=== PATIENT | male | born 1985 | race Two or more races ===

== ENCOUNTER 2023-09-17 08:59 | Outpatient (REF) | payer MEDICAID, OTHER, SELFPAY ==
[2023-09-17 14:43] LABS: MANUAL DIFF FLAG NO
[2023-09-17 14:54] LABS: Basophils Absolute Auto 0.1 X10*3/uL (0.0-0.2); Basophils Percent Auto 0.7 % (0-2); Eosinophils Absolute Auto 0.1 X10*3/uL (0.0-0.4); Eosinophils Percent Auto 1.5 % (0-4); Hematocrit 43.7 % (42.0-52.0); Hemoglobin 14.3 g/dl (14.0-18.0); Imm Gran Abs Auto 0.03 X10*3/uL (0.00-0.03); Imm Gran Pct Auto 0.4 % (0.0-0.4); Lymphocytes Absolute Auto 1.9 X10*3/uL (1.2-4.9); Lymphocytes Percent Auto 28.7 % (20-40); Mean Corpuscular HGB Conc 32.7 g/dl (31.0-36.0); Mean Corpuscular Volume 88.6 fL (80.0-98.0); Mean Platelet Volume 12.1 fL (9.4-12.4); Monocytes Absolute Auto 0.6 X10*3/uL (0.1-1.2); Monocytes Percent Auto 9.4 % (2-11); Neutrophils Percent Auto 59.3 % (45-73); Platelet Count 157 X10*3/uL (160-400); Red Blood Count 4.93 X10*6/uL (4.60-5.80); Red Cell Distribution Width 13.6 % (11.0-16.0); White Blood Count 6.7 X10*3/uL (4.8-10.8)
[2023-09-17 15:00] LABS: Estimated Average Glucose 105 mg/dL; Hemoglobin A1c % 5.3 % (<6.0)
[2023-09-17 15:12] LABS: Rheumatoid Factor < 13.0 IU/mL (<15.0)
[2023-09-17 15:26] LABS: Alanine Aminotransferase 41 U/L (0-40); Albumin Level 4.9 g/dL (3.5-5.0); Alkaline Phosphatase 68 U/L (39-117); Anion Gap 12 (12-20); Aspartate Amino Transferase 30 U/L (5-37); Bilirubin Direct 0.3 mg/dL (0.0-0.5); Bilirubin Total 0.7 mg/dL (0.0-1.0); Blood Urea Nitrogen 15 mg/dL (9-16); Calcium 9.7 mg/dL (8.4-10.2); Carbon Dioxide 26 mmol/L (22-29); Chloride 104 mmol/L (96-108); Cholesterol 186 mg/dL (<200); Estimated Glomerular Filt Rate > 60; Glucose Fasting 90 mg/dL (60-99); HDL Cholesterol 42 mg/dL (>40); LDL Cholesterol Calculated 121 mg/dL (<100); Potassium 4.1 mmol/L (3.3-5.1); Sodium 138 mmol/L (135-145); TSH reflex Free T4 2.26 uIU/mL (0.32-4.0); Triglycerides 115 mg/dL (<150); Uric Acid 6.5 mg/dL (3.4-7.0); Vitamin D 25-OH Total 36.1 ng/mL (>30)
[2023-09-17 16:06] LABS: Erythrocyte Sedimentation Rate 4 MM/HR (0-15)
[2023-09-18 08:12] LABS: HBc Num1 0.09 S/CO (0.00-0.79); HBsAGNum1 0.32 S/CO (0.00-0.99); Hepatitis A Antibody IgM 0.16 Index (0-0.79); Hepatitis B Core Antibody Nonreactive (Nonreactive); Hepatitis B Surface Antigen Negative (Negative); ~HepC Num1 0.14 S/CO (0.00-0.79); ~Hepatitis A Antibody IgM Nonreactive (Nonreactive); ~Hepatitis B Surface Antibody REACTIVE (Nonreactive); ~Hepatitis C Antibody Nonreactive (Nonreactive)
== END 2023-09-17 09:00 | disposition home or self-care (01) ==
LOC: HO.CHCLDS 08:59
PROVIDERS: Visit Provider Pediatrics
DX: M25.562 Pain in left knee (principal); G89.29 Other chronic pain; N46.9 Male infertility, unspecified; E66.3 Overweight
CPT/HCPCS: 36415; 80048; 80061; 80076; 82306; 83036; 84443; 84550; 85025; 85652; 86431; 86704; 86706; 86709; 86803; 87340

== ENCOUNTER 2024-05-20 08:40 | Outpatient (REF) | payer MEDICAID, OTHER, SELFPAY ==
--- NOTE | ~2024-05-20 | US_ITS ---
EXAMINATION: US ABDOMEN COMPLETE CLINICAL INFORMATION: Severe right upper quadrant pain with tenderness. COMPARISON: None available. TECHNIQUE: Real-time imaging of the abdominal viscera. FINDINGS: PANCREAS: Normal. ABDOMINAL AORTA: The proximal, mid, and distal segments are normal in caliber. INFERIOR VENA CAVA: Visualized portions are normal. LIVER: The liver is normal in size. The liver contour is normal. Parenchymal echogenicity is normal. Small approximately 0.5 cm calcification in the right hepatic lobe. There is no intrahepatic biliary duct dilatation seen. GALLBLADDER: Multiple stones, some impacted in the neck with admixed echogenic bile, diffuse wall thickening measuring up to 0.9 cm and pericholecystic fat stranding. Positive Lincoln sign. Suspect a few foci of adenomyomatosis. COMMON BILE DUCT: Normal in caliber measuring 0.5 cm in diameter. RIGHT KIDNEY: Normal. No hydronephrosis. No renal calculi or focal parenchymal lesions. The kidney measures 11.6 cm in maximum dimension. LEFT KIDNEY: Simple appearing cysts measuring up to 2.6 cm, for which no imaging follow-up is routinely recommended No hydronephrosis or renal calculi. The kidney measures 12 cm in maximum dimension. SPLEEN: Calcified granulomas are seen. The spleen measures 11 cm in maximum dimension. FREE FLUID: None. US/US abdomen complete IMPRESSION: Findings are most consistent with acute cholecystitis in the appropriate clinical setting. The report will be called to the ordering clinician by a [place] Radiology Physician Data Scientist. Electronically signed by: Estela William MD 05/20/2024 10:30 AM EDT
== END 2024-05-20 08:41 | disposition home or self-care (01) ==
LOC: HO.US 08:40
PROVIDERS: PCP Family Medicine; Visit Provider Family Medicine
DX: R10.11 Right upper quadrant pain (principal)
CPT/HCPCS: 76700

== ENCOUNTER 2024-05-20 15:56 | Inpatient (IN) | payer MEDICAID, OTHER, SELFPAY ==
[2024-05-20 16:09] VITALS: BP 127/70; PULSE 68; RESP 18; TEMP 37.2; O2SAT 99; BMI 34.9
--- NOTE | 2024-05-20 16:09 | ED_ITS ---
HPI - Abdominal Pain General Chief Complaint: Abdominal Pain Stated Complaint: Abnormal ultrasound - sent by Dr Chen Seen by Provider: 05/20/24 16:47 Source: patient Mode of arrival: ambulatory Limitations: no limitations History of Present Illness HPI narrative: Patient is a 39-year-old male presents to the emergency department for evaluation for the past 6 days he has been experiencing intermittent right upper quadrant abdominal pain. An outpatient ultrasound earlier this morning was called by his PCP to present to the ER with concerns for acute cholecystitis. He denies associated fevers, chills, chest pain, shortness of breath, nausea, vomiting, diarrhea. Denies any history of gallstones in the past. Denies any drug or alcohol usage. Outpatient ultrasound obtained earlier this morning revealing acute cholecystitis with multiple stones some impacted in the neck and diffuse wall thickening measuring up to 0.9 cm with pericholecystic fat stranding positive Lincoln sign, CBD 0.5 cm Related Data Home Medications ?Medication ?Instructions ?Recorded ?Confirmed No Known Home Meds 05/20/24 05/20/24 Allergies Allergy/AdvReac Type Severity Reaction Status Date / Time No Known Allergies Allergy Verified 05/20/24 16:11 Review of Systems Review of Systems Yes all other systems are reviewed and are negative PMFSH Past Medical History Attestation statement: The following information was validated with the patient. Source: old records reviewed Social History Social History Smoked in Last 30 Days: No Use of substances other than those prescribed or required for medical reasons: No Advance Directives: No Advance Directives Information Provided: No Do you have a plan to hurt others: No Plan Physical Exam ED Vital Signs: Vital Signs - 24 hr 05/20/24 16:09 05/20/24 18:33 Temperature 98.9 F 98.3 F Pulse Rate 68 74 Respiratory Rate 18 16 Blood Pressure 127/70 139/82 Pulse Oximetry 99 98 Oxygen Delivery Method Room Air Room Air BMI result Body Mass Index 34.9 Appearance: Alert.?Oriented to person, place and time. No acute distress.?Normal affect. Neck: Normal inspection.? Neck supple.?? CVS: Heart sounds normal. Normal heart rate and rhythm.? Pulses normal.?? Respiratory: No respiratory distress.? Lung sounds clear to auscultation bilaterally?? Abdomen: Soft with right upper quadrant epigastric tenderness upon palpation. Positive Lincoln sign. No rigidity. No guarding. Normoactive bowel sounds. No pulsatile mass.?? Skin: Skin warm and dry.? Normal skin color.? Extremities: No lower extremity edema.? No calf ttp? Neuro: Moves all extremities spontaneously. Sensation intact bilaterally. Ambulates with normal steady gait. Course Course Course Narrative: This is a Rapid Medical Examination (RME) performed by Katelynn Pandey PA-C in triage. Full HPI, ROS, assessment and treatment plan per primary provider in the Main ED. 39 yo male here for eval of sharp RUQ pain x5 days. had abdominal US at 0900 this morning, was called by PCP for findings consistent with acute cholecystitis. no prev abd surgeries. denies N/V/D, fever, chills. + RUQ ttp. positive murphys sign. Plan: labs, US read in system Medical Decision Making Medical Decision Making [facility] Narrative: Patient is a 39-year-old male with no reported past medical history presenting to emergency department for evaluation of right upper quadrant abdominal pain as per HPI. Intermittent in nature. Currently 09/16. Outpatient ultrasound consistent with acute cholecystitis. CBC is without leukocytosis, mild normocytic anemia that does not meet transfusion criteria, no thrombocytopenia. No electrolyte derangement. No DALE. LFTs and lipase within normal range. Patient received normal saline IV fluid, Zosyn IV, consulting general surgery, Dr. Tomlinson. Differential Diagnosis Differential Diagnoses: The differential diagnosis associated with the presentation includes (Acute cholecystitis, cholelithiasis, CBD stone) Admission/Observation Consideration of admission/observation: Escalation of care including admission/observation considered (See narrative above) Consult Healthcare Provider Management of the patient was discussed with: Military Cook (General surgery) Patient admitted to general surgery service with Dr. Tomlinson, pending cholecystectomy tomorrow, this plan of care was discussed with patient with use Egyptian Angolan calender wind up helper all questions were answered. Lab Data [facility] Lab Attestation statement: I reviewed the patient's lab results. (See narrative above) 05/20/24 16:27 05/20/24 16:27 Labs: Lab Results 05/20/24 05/20/24 Range/Units 16:27 17:15 WBC 8.7 (4.8-10.8) X10*3/uL RBC 4.33 L (4.60-5.80) X10*6/uL Hgb 12.8 L (14.0-18.0) g/dl Hct 38.2 L (42.0-52.0) % MCV 88.2 (80.0-98.0) fL MCH 29.6 (27.0-33.0) pg MCHC 33.5 (31.0-36.0) g/dl RDW 12.4 (11.0-16.0) % Plt Count 255 D (160-400) X10*3/uL MPV 10.8 (9.4-12.4) fL Immature Gran % (Auto) 0.3 (0.0-0.4) % Neut % (Auto) 68.5 (45-73) % Lymph % (Auto) 20.3 (20-40) % [place] % (Auto) 8.7 (2-11) % Eos % (Auto) 1.7 (0-4) % Baso % (Auto) 0.5 (0-2) % Lymph # (Auto) 1.8 (1.2-4.9) X10*3/uL [place] # (Auto) 0.8 (0.1-1.2) X10*3/uL Eos # (Auto) 0.2 (0.0-0.4) X10*3/uL Baso # (Auto) 0.0 (0.0-0.2) X10*3/uL Abs Immat Gran (auto) 0.03 (0.00-0.03) X10*3/uL Absolute Neuts (auto) 5.9 (2.0-8.3) x10*3/uL Absolute Nucleated RBC 0.000 (0.0-0.012) X10*3/uL Nucleated RBC % (auto) 0.0 (0.0-0.2) /100WBC Sodium 139 (135-145) mmol/L Potassium 4.1 (3.3-5.1) mmol/L Chloride 103 (96-108) mmol/L Carbon Dioxide 26 (22-29) mmol/L Anion Gap 14 (12-20) BUN 19 H (9-16) mg/dL Creatinine 1.00 (0.5-1.4) mg/dL Estim Creat Clear Calc 107.5 Estimated GFR > 60 Random Glucose 86 (60-115) mg/dL Lactic Acid 0.9 (0.5-2.0) mmol/L Calcium 9.5 (8.4-10.2) mg/dL Total Bilirubin 0.6 (0.0-1.0) mg/dL Direct Bilirubin 0.1 (0.0-0.5) mg/dL AST 17 (5-37) U/L ALT 19 (0-40) U/L Alkaline Phosphatase 62 (39-117) U/L Total Protein 7.3 (6.5-8.0) g/dL Albumin 4.2 (3.5-5.0) g/dL Lipase 35 (8-78) U/L External Record Review External record reviewed: Prior outpatient radiology 05/20/2024 US/US abdomen complete IMPRESSION: Findings are most consistent with acute cholecystitis in the appropriate clinical setting. Medications Administered Discontinued Medications Generic Name Dose Route Start Last Admin Trade Name Freq PRN Reason Stop Dose Admin Acetaminophen 650 mg 05/20/24 19:48 05/20/24 19:52 Acetaminophen 325 Mg Tablet PO 05/20/24 19:49 650 mg ONCE ONE Administration Piperacillin Sod/Tazobactam 100 mls @ 200 mls/hr 05/20/24 17:01 05/20/24 18:27 Sod 4.5 gm/ Sodium Chloride IV 05/20/24 17:30 Infused ONCE ONE Infusion Sodium Chloride 1,000 mls @ 999 mls/hr 05/20/24 17:15 05/20/24 19:49 Ns IV 05/20/24 18:15 Infused .Q1H1M [facility] Infusion Discharge Plan Discharge Clinical Impression: Acute cholecystitis Patient Disposition: Admitted As Inpatient Prescriptions: No Action No Known Home Meds Print Language: Angolan
[2024-05-20 16:35] LABS: MANUAL DIFF FLAG NO
[2024-05-20 16:40] LABS: Basophils Percent Auto 0.5 % (0-2); Eosinophils Absolute Auto 0.2 X10*3/uL (0.0-0.4); Eosinophils Percent Auto 1.7 % (0-4); Hematocrit 38.2 % (42.0-52.0); Hemoglobin 12.8 g/dl (14.0-18.0); Imm Gran Abs Auto 0.03 X10*3/uL (0.00-0.03); Imm Gran Pct Auto 0.3 % (0.0-0.4); Lymphocytes Absolute Auto 1.8 X10*3/uL (1.2-4.9); Lymphocytes Percent Auto 20.3 % (20-40); Mean Corpuscular HGB Conc 33.5 g/dl (31.0-36.0); Mean Corpuscular Hemoglobin 29.6 pg (27.0-33.0); Mean Corpuscular Volume 88.2 fL (80.0-98.0); Mean Platelet Volume 10.8 fL (9.4-12.4); Monocytes Absolute Auto 0.8 X10*3/uL (0.1-1.2); Monocytes Percent Auto 8.7 % (2-11); Neutrophils Absolute Auto 5.9 x10*3/uL (2.0-8.3); Neutrophils Percent Auto 68.5 % (45-73); Platelet Count 255 X10*3/uL (160-400); Red Blood Count 4.33 X10*6/uL (4.60-5.80); Red Cell Distribution Width 12.4 % (11.0-16.0); White Blood Count 8.7 X10*3/uL (4.8-10.8)
[2024-05-20 16:58] LABS: Alanine Aminotransferase 19 U/L (0-40); Albumin Level 4.2 g/dL (3.5-5.0); Alkaline Phosphatase 62 U/L (39-117); Anion Gap 14 (12-20); Aspartate Amino Transferase 17 U/L (5-37); Bilirubin Direct 0.1 mg/dL (0.0-0.5); Bilirubin Total 0.6 mg/dL (0.0-1.0); Blood Urea Nitrogen 19 mg/dL (9-16); Calcium 9.5 mg/dL (8.4-10.2); Carbon Dioxide 26 mmol/L (22-29); Chloride 103 mmol/L (96-108); Creatinine Clr Calc Pharmacy 107.5; Estimated Glomerular Filt Rate > 60; Glucose Random 86 mg/dL (60-115); Lipase 35 U/L (8-78); Potassium 4.1 mmol/L (3.3-5.1); Sodium 139 mmol/L (135-145); Total Protein 7.3 g/dL (6.5-8.0)
[2024-05-20 17:35] LABS: Lactic Acid 0.9 mmol/L (0.5-2.0)
[2024-05-20] MEDS: 0.9 % Sodium Chloride 1,000 ML 999 ML IV (18:00)
[2024-05-20] MEDS: Piperacillin Sodium/Tazobactam 4.5 GM in 0.9 % Sodium Chloride 100 ML IV (18:00)
[2024-05-20 18:33] VITALS: BP 139/82; PULSE 74; RESP 16; TEMP 36.8; O2SAT 98
--- NOTE | 2024-05-20 18:50 | PHA.MEDREC ---
Addendum entered by Mert Israel RPh 05/20/24 19:05: Med rec was reviewed by KRISTINA. Original Note: Pharmacy Consult ? Medication Reconciliation Pharmacy has completed the medication reconciliation.
[2024-05-20] MEDS: Acetaminophen 325 MG TABLET 650 MG PO (19:52)
--- NOTE | 2024-05-20 19:54 | PC.NURSE ---
Pt aox4, resting with family at the bedside. No apparent distress noted. Pt reports back pain, 2/10. Medicated with Tylenol. Pending admit orders. Pt aware of plan of care.
[2024-05-20 23:26] VITALS: BP 126/67; PULSE 54; RESP 18; O2SAT 98
[2024-05-21] VITALS (10 sets, daily range): BP systolic 106–142; BP diastolic 56–73; PULSE 54–90; RESP 14–20; TEMP 36.6–37.1; O2SAT 91–99; BMI 34.8
--- NOTE | 2024-05-21 01:56 | PC.NURSE ---
Pt reports increasing abdominal pain through all 4 quadrants, 06/16. [place] text sent to Dr. Tomlinson. New order received and placed in the MAR. Pt medicated and tolerated well.
[2024-05-21] MEDS: Morphine Sulfate 4 MG/ML CARTRIDGE 3 MG IVPUSH (02:13)
[2024-05-21] MEDS: 0.9 % Sodium Chloride 1,000 ML 100 ML IVCONT ×2 (05:10→14:31)
[2024-05-21] MEDS: Piperacillin Sodium/Tazobactam 3.375 GM in 0.9 % Sodium Chloride 50 ML IV ×3 (05:32→17:37)
--- NOTE | 2024-05-21 05:56 | PC.NURSE ---
RN assumed care of patient @0545. Denies having any pain/discomfort at this moment. Medicated for pain at main ED with good effect per report. Pt resting comfortably, no apparent distress. Call cortez within reach. Plan of care ongoing.
--- NOTE | 2024-05-21 09:19 | PHA.MEDREC ---
Addendum entered by Zonia Oates RPh 05/21/24 09:52: MED REC REVIEWED BY DAVID Original Note: Pharmacy Consult ? Medication Reconciliation Pharmacy has completed the medication reconciliation. Patient reports no medications or OTC.
--- NOTE | 2024-05-21 09:23 | PC.NURSE ---
patient remains NPO as surgery will be today per Dr. Ramos and this MD will come and see patient at 9 am
--- NOTE | 2024-05-21 10:28 | P.HPGS_ITS ---
History of Present Illness History of Present Illness Date of Service: 05/21/24 Chief complaint: Abdo pain Narrative: Sarah Brown is a 39 year old male very healthy who for the last week has been having right upper quadrant pain. It has gotten worse with some nausea no vomiting and he saw his PCP who asked him to get outpatient ultrasound which showed findings of acute cholecystitis. As a result he was told to come into the emergency room. blood work was relatively normal. Ultrasound revealed thickened gallbladder positive Lincoln sound. Patient diagnosed with acute cholecystitis admitted IV antibiotics NPO. Plan to do laparoscopic cholecystectomy. Review of Systems Review of Systems: Yes all other systems are reviewed and are negative PMFSH Social History Social History Patient Tobacco Use Status: Never used Tobacco Smoked in Last 30 Days: No Use of substances other than those prescribed or required for medical reasons: No Advance Directives: No Advance Directives Information Provided: No Do you have a plan to hurt others: No Plan Nutrition Risks: No Nutritional Risk Meds Allergies Allergy/AdvReac Type Severity Reaction Status Date / Time No Known Allergies Allergy Verified 05/20/24 16:11 Active Medications: Current Medications Acetaminophen (Acetaminophen 325 Mg Tablet) 650 mg PO Q6H PRN PRN Reason: Pain, Mild (Pain Scale 1-3), fever or headache Sodium Chloride (Ns) 1,000 mls @ 100 mls/hr IVCONT .Q10H [facility] Last Admin: 05/21/24 05:10 Dose: 100 mls/hr Piperacillin Sod/Tazobactam (Sod 3.375 gm/ Sodium Chloride) 50 mls @ 100 mls/hr IV Q6H [facility] Last Infusion: 05/21/24 06:06 Dose: Infused Melatonin (Melatonin 3 Mg Tablet) 6 mg PO BEDTIME PRN PRN Reason: Insomnia Morphine Sulfate (Morphine Sulfate 4 Mg/Ml Cartridge) 3 mg IVPUSH Q4H PRN; Protocol PRN Reason: Pain, Severe (Pain Scale 7-10) Last Admin: 05/21/24 02:13 Dose: 3 mg Sodium Chloride (0.9 % Sodium Chloride Flush 3 Ml Syringe) 3 ml IVFLUSH QSHIFT [facility] Last Admin: 05/21/24 09:22 Dose: Not Given Home Medications ?Medication ?Instructions ?Recorded ?Confirmed ?Last Taken ?Type No Known Home Meds 05/20/24 05/20/24 Unknown History Physical Exam Vital Signs: Vital Signs: Last Vital Signs Temp 98.1 F 05/21/24 06:31 Pulse 55 05/21/24 06:31 Resp 20 05/21/24 06:31 BP 110/56 L 05/21/24 06:31 Pulse Ox 98 05/21/24 06:31 O2 Del Method Room Air 05/21/24 06:31 BMI result Body Mass Index 34.9 Const: General: cooperative, healthy appearing, comfortable and no acute distress Orientation/consciousness: patient oriented x3 HEENT: Other: Nonicteric Resp: Effort & Inspection: normal respiratory effort Auscultation: clear to auscultation bilaterally Cardio: Rate: regular rate Rhythm: regular rhythm GI: Other: Abdomen is soft nondistended some tenderness in the epigastric to right upper quadrant area mild guarding no rebound no peritoneal signs active bowel sounds no hernias or masses Skin: Other: Nonicteric Neuro: General: patient oriented x3 Cranial nerves: Yes CN's II-XII intact bilaterally Extrem: General: Yes normal to inspection Psych: Appearance: grossly normal Mental Status: mental status grossly normal Speech and movement: Normal speech and movement present Affect: normal affect Attitude: cooperative Thought process: Normal thought process present Thought content: Normal thought content present Insight: Good insight present (Psych) Judgement: Good judgement present (Psych) Results Results Labs: Short CBC 05/20/24 Range/Units 16:27 WBC 8.7 (4.8-10.8) X10*3/uL Hgb 12.8 L (14.0-18.0) g/dl Hct 38.2 L (42.0-52.0) % Plt Count 255 D (160-400) X10*3/uL BMP 05/20/24 16:27 Sodium 139 Potassium 4.1 Chloride 103 Carbon Dioxide 26 BUN 19 H Creatinine 1.00 Calcium 9.5 Liver Function 05/20/24 Range/Units 16:27 Total Bilirubin 0.6 (0.0-1.0) mg/dL Direct Bilirubin 0.1 (0.0-0.5) mg/dL AST 17 (5-37) U/L ALT 19 (0-40) U/L Alkaline Phosphatase 62 (39-117) U/L Albumin 4.2 (3.5-5.0) g/dL Abdominal ultrasound report/results: report reviewed Additional studies: [address] [address] Ultrasound Report Signed with Margareth Patient: Sarah Thomas MR#: [id number] : 1985 Acct:[id number] Age/Sex: 39 / M ADM Date: 05/20/24 Loc: HO.US Attending Dr: Leelee Desouza DO Ordering Physician: Leelee Desouza DO Date of Service: 05/20/24 Procedure(s): US abdomen complete Accession Number(s): [id number] cc: Leelee Desouza DO~ ADDENDUM ADDENDUM #1 A [place] classroom coordinator (Sharifa Altamirano) confirmed receipt of these findings and recommendations with Leelee Desouza DO at 10:43 AM on 05/20/2024. Electronically signed by: Estela William MD 05/20/2024 10:49 AM EDT Addendum Dictated By: Estela William Addendum Signed By: <Electronically signed by Estela William in OV> 05/20/24 1049 Addendum Cosigned By: DD/ TD/TT: 05/20/24 EXAMINATION: US ABDOMEN COMPLETE CLINICAL INFORMATION: Severe right upper quadrant pain with tenderness. COMPARISON: None available. TECHNIQUE: Real-time imaging of the abdominal viscera. FINDINGS: PANCREAS: Normal. ABDOMINAL AORTA: The proximal, mid, and distal segments are normal in caliber. INFERIOR VENA CAVA: Visualized portions are normal. LIVER: The liver is normal in size. The liver contour is normal. Parenchymal echogenicity is normal. Small approximately 0.5 cm calcification in the right hepatic lobe. There is no intrahepatic biliary duct dilatation seen. GALLBLADDER: Multiple stones, some impacted in the neck with admixed echogenic bile, diffuse wall thickening measuring up to 0.9 cm and pericholecystic fat stranding. Positive Lincoln sign. Suspect a few foci of adenomyomatosis. COMMON BILE DUCT: Normal in caliber measuring 0.5 cm in diameter. RIGHT KIDNEY: Normal. No hydronephrosis. No renal calculi or focal parenchymal lesions. The kidney measures 11.6 cm in maximum dimension. LEFT KIDNEY: Simple appearing cysts measuring up to 2.6 cm, for which no imaging follow-up is routinely recommended No hydronephrosis or renal calculi. The kidney measures 12 cm in maximum dimension. SPLEEN: Calcified granulomas are seen. The spleen measures 11 cm in maximum dimension. FREE FLUID: None. US/US abdomen complete IMPRESSION: Findings are most consistent with acute cholecystitis in the appropriate clinical setting. The report will be called to the ordering clinician by a [place] Radiology Physician Head Banquet Waitress. Electronically signed by: Estela William MD 05/20/2024 10:30 AM EDT Dictated By: Estela William Signed By: <Electronically signed by Estela William in OV> 05/20/24 1030 Assessment and Plan (1) Acute cholecystitis: Status: Acute Plan 39-year-old male with acute cholecystitis history and tender in the right upper quadrant labs look good ultrasound confirming diagnosis. Plan to carry out laparoscopic cholecystectomy. He has been admitted IV hydration NPO IV antibiotics with Zosyn. Risks and benefits were discussed with the patient including but not limited to bleeding infection possible open procedure possible bowel injury possible organ injury possible common bile duct injury and despite this he wishes to proceed Quality Stroke Does the patient have a stroke diagnosis?: No VTE Prior VTE?: No VTE Risk Level:: Surgical - low VTE Device Contraindication: N/A - Device Ordered VTE Drug Contraindication: Treatment Not Indicated Procedures Date of Service Date of Service: 05/21/24
--- NOTE | 2024-05-21 12:23 | HO.ANESPROP2 ---
PMF Active Problems Active Problems: All Active Problems Acute cholecystitis (Acute) Family History Family history of problems with anesthesia: No Surgical History History of Problems with Anesthesia: No Social History Social History Patient Tobacco Use Status: Never used Tobacco Smoked in Last 30 Days: No Use of substances other than those prescribed or required for medical reasons: No Advance Directives: No Advance Directives Information Provided: No Do you have a plan to hurt others: No Plan Nutrition Risks: No Nutritional Risk Meds Allergies Allergy/AdvReac Type Severity Reaction Status Date / Time No Known Allergies Allergy Verified 05/20/24 16:11 Active Medications: Current Medications Acetaminophen (Acetaminophen 325 Mg Tablet) 650 mg PO Q6H PRN PRN Reason: Pain, Mild (Pain Scale 1-3), fever or headache Sodium Chloride (Ns) 1,000 mls @ 100 mls/hr IVCONT .Q10H [facility] Last Infusion: 05/21/24 11:33 Dose: Infused Piperacillin Sod/Tazobactam (Sod 3.375 gm/ Sodium Chloride) 50 mls @ 100 mls/hr IV Q6H [facility] Last Admin: 05/21/24 11:27 Dose: 100 mls/hr Melatonin (Melatonin 3 Mg Tablet) 6 mg PO BEDTIME PRN PRN Reason: Insomnia Morphine Sulfate (Morphine Sulfate 4 Mg/Ml Cartridge) 3 mg IVPUSH Q4H PRN; Protocol PRN Reason: Pain, Severe (Pain Scale 7-10) Last Admin: 05/21/24 02:13 Dose: 3 mg Sodium Chloride (0.9 % Sodium Chloride Flush 3 Ml Syringe) 3 ml IVFLUSH QSHIFT [facility] Last Admin: 05/21/24 09:22 Dose: Not Given Home Medications ?Medication ?Instructions ?Recorded ?Confirmed ?Last Taken ?Type No Known Home Meds 05/20/24 05/20/24 Unknown History Exam Height,Weight and Vital Signs: Height 5 ft 6 in Weight 97.976 kg Last Vital Signs Temp 98.1 F 05/21/24 06:31 Pulse 55 05/21/24 06:31 Resp 20 05/21/24 06:31 BP 110/56 L 05/21/24 06:31 Pulse Ox 98 05/21/24 06:31 O2 Del Method Room Air 05/21/24 06:31 Pertinent Lab Results Pertinent Lab Results: Laboratory Tests 05/20/24 05/20/24 16:27 17:15 WBC 8.7 RBC 4.33 L Hgb 12.8 L Hct 38.2 L MCV 88.2 MCH 29.6 MCHC 33.5 RDW 12.4 Plt Count 255 D MPV 10.8 Immature Gran % (Auto) 0.3 Neut % (Auto) 68.5 Lymph % (Auto) 20.3 [place] % (Auto) 8.7 Eos % (Auto) 1.7 Baso % (Auto) 0.5 Lymph # (Auto) 1.8 [place] # (Auto) 0.8 Eos # (Auto) 0.2 Baso # (Auto) 0.0 Abs Immat Gran (auto) 0.03 Absolute Neuts (auto) 5.9 Absolute Nucleated RBC 0.000 Nucleated RBC % (auto) 0.0 Sodium 139 Potassium 4.1 Chloride 103 Carbon Dioxide 26 Anion Gap 14 BUN 19 H Creatinine 1.00 Estim Creat Clear Calc 107.5 Estimated GFR > 60 Random Glucose 86 Lactic Acid 0.9 Calcium 9.5 Total Bilirubin 0.6 Direct Bilirubin 0.1 AST 17 ALT 19 Alkaline Phosphatase 62 Total Protein 7.3 Albumin 4.2 Lipase 35 Airway Mallampati Class: II TM Dist: >3cm Neck ROM: Full Assessment and Plan Assessment Anesthesia Assessment: Anesthesia Plan Discussed and Chart Reviewed Final Anesthetic Review Family History of Problems with Anesthesia: No History of Problems with Anesthesia: No NPO: Yes ASA Class: II and Emergency Final Preanesthetic Review: No Changes in Pt Med Stat, Meds/Allgs Chart Reviewed, Consent Obtained/Reviewed and Anes Risks/Benef Reviewed Patient Risk: Low Procedure Risk: Intermediate Anesthetic Plan Anesthetic Plan: GA Disposition: Standard PACU
--- NOTE | 2024-05-21 13:53 | W.PM.OPN ---
Operative Note Operative Note Date of Service: 05/21/24 Narrative: Preop diagnosis--acute cholecystitis Postop diagnosis--acute cholecystitis Procedure--laparoscopic cholecystectomy Surgeon--Davi Anesthesia--MELIDA History-patient is a 39-year-old male nondiabetic healthy who has been having right upper quadrant pain for the last week and had outpatient ultrasound which showed findings consistent with acute cholecystitis and so he was directed by his primary care physician to come to the emergency room. His labs were all normal but he was definitely tender in the right upper quadrant. As result plan is to undergo laparoscopic cholecystectomy. He is in agreement with that understanding risks and benefits Findings--acutely inflamed gallbladder Procedure-- Patient was brought to the operative room under Anesthesia guidance was intubated. He had compression stockings placed before induction received antibiotics in the emergency room. His abdomen was prepped and draped in standard surgical fashion. An infraumbilical incision was created after numbing up the area with a 0.25% Marcaine with epinephrine. Dissection was carried down to the anterior abdominal wall fascia which was grasped with Osmel's and transected. 0 Vicryl pursestring suture placed. Trammell trocar introduced and pneumoperitoneum established to 15 mm pressure. Three 5 mm ports were then placed under direct visualization using some local 2 in the right upper quadrant area 1 in the epigastric area. The gallbladder was identified in the right upper quadrant was very distended. Some drainage of some bile with a needle decompression suctioned device was carried out in order to grasp and retract it. Adhesions of the omental fat were taken down and using blunt dissection we were eventually able to dissect out the cystic duct. The triangle of Calot tissue was very stuck and little firm. Adjacent to it there was another structure which seemed to be the cystic artery. The cystic duct was clipped to down and 1 up and transected. Now we are able to get to the cystic artery little bit better and this was also clipped and transected. Using blunt dissection with laparoscopic peanut as well as the suction plodding operator the tissue medial was taken down hugging the gallbladder to the liver bed. Now using a hook cautery the gallbladder was taken off the liver bed with the wall of the gallbladder being inflamed and very thickened. Several stones at fallen out of a hole that was created in the process of trying to grasp and retract the gallbladder. The gallbladder was then placed in Endo-Catch bag and removed. Another Endo-Catch bag was placed and the stones retrieved there. The area was suctioned and irrigated and the cystic duct stump and cystic artery area looked intact. Little bleeding was noted at the liver bed and this was cauterized. Now the right midabdomen port was removed and there was a little bleeding and this was cauterized from internally in the musculature. The other ports were then removed. Hemostasis looked good. Trammell trocar was removed and the pursestring approximated. Little more local was used in the infraumbilical port site. 4-0 Monocryl in a interrupted subcuticular fashion was used to approximate the skin edges with Steri-Strips. At the end of the case all sponge instrument needle counts were correct. Estimated blood loss was about 6 cc specimens sent was the gallbladder and stones. Patient was extubated returned stable to recovery room
[2024-05-21] MEDS: oxyCODONE HCl Immed Release 5 MG TABLET 10 MG PO (19:22)
[2024-05-22] MEDS: Piperacillin Sodium/Tazobactam 3.375 GM in 0.9 % Sodium Chloride 50 ML IV ×3 (00:08→11:32)
[2024-05-22] MEDS: 0.9 % Sodium Chloride 1,000 ML 100 ML IVCONT ×2 (00:10→11:35)
[2024-05-22 03:19] VITALS: BP 118/63; PULSE 62; RESP 16; TEMP 36.7; O2SAT 98
[2024-05-22 07:31] VITALS: BP 118/65; PULSE 62; RESP 18; TEMP 36.2; O2SAT 99
--- NOTE | 2024-05-22 13:19 | PM.DS ---
DS: Providers Provider Date of Service: 05/22/24 Date of admission: 05/21/24 04:42 Date of discharge: 05/22/24 Primary care physician: Unknown Physician DS: Diagnosis Discharge Diagnosis (1) Acute cholecystitis: Start date: 05/20/24 Status: Acute DS: Summary Hospital Course Hospital Course: Patient is a 39-year-old male who presented to the emergency room with a week history of right upper quadrant pain labs were normal but ultrasound showed gallbladder thickening pericholecystic fluid consistent with acute cholecystitis. This was confirmed intraoperatively during his laparoscopic cholecystectomy which went fine. Status at Discharge Functional status at discharge: independent ambulation Overall status at discharge: patient is progressing back to baseline Time Attestation Discharge Coordination Time (in mins): 30 Quality: Safe Use of Opioids Does Pt have an Active Cancer Diagnosis on the Problem List?: No Quality: Stroke Does the patient have a stroke diagnosis?: No Physical Exam Vital Signs: Vital Signs: Last Vital Signs Temp 97.2 F 05/22/24 07:31 Pulse 62 05/22/24 07:31 Resp 18 05/22/24 07:31 BP 118/65 05/22/24 07:31 Pulse Ox 99 05/22/24 07:31 O2 Del Method Room Air 05/22/24 07:31 BMI result Body Mass Index 34.8 Const: General: cooperative, healthy appearing, comfortable and no acute distress GI: Other: Abdomen is soft nontender other than the incision areas ambulating well. Skin: Other: Nonicteric DS: Data Data Completed and Pending Pending studies at discharge: Pending at discharge 05/21/24 13:13 Surgical [PTH] Routine Labs on day of discharge: Preliminary micro results at discharge 05/20/24 17:47 Blood Culture - Preliminary Blood - Venous No growth after 24 hours. 05/20/24 17:15 Blood Culture - Preliminary Blood - Venous No growth after 24 hours. Discharge Plan Discharge Anticipated Discharge Date/Time: 05/22/24 13:21 Patient Disposition: Home, Self-Care Discharge Diagnosis: cholecystitis Referrals: Physician,Unknown J [Primary Care Provider] - 1 Week Discharge Medications: New oxycodone 5 mg tablet 5 mg PO Q4H PRN (Reason: pain) Qty: 14 0RF Rx Instructions: Partial Fill upon patient request. docusate sodium [Colace] 100 mg capsule 100 mg PO BID Qty: 14 0RF Discharge Orders: Discharge Order (Routine); Ordered 05/22/24 Ordered By: Natacha Tomlinson Diet: Low fat, low cholesterol Activity on Discharge: No heavy lifting Stand Alone Forms: Patient Portal Discharge page Print Language: [place] Care Plan Goals: pt doing well - regular activities to build up - no lifting more than 10 lbs. follow up with surgeons this week in the office. May shower tomorrow and take off dressings then. Health Concerns: Patient to report if any significant bleeding from the incisions any fevers or chills excessive nausea vomiting and abdominal pain. Plan of Treatment: Slowly increase activity continue with low-fat diet no more than 10 lb lifting Assessment: Patient doing well. Patient is status post laparoscopic cholecystectomy for acute cholecystitis
[2024-05-22 15:21] VITALS: BP 147/75; PULSE 72; RESP 18; TEMP 36.5; O2SAT 99
--- NOTE | 2024-05-22 15:24 | MHC.CM.PN ---
PT REPORTS HE LIVES WITH HIS AND IS INDEPENDENT WITH CARE HE HAS NO SERVICES AND NO DME PT SAYS HIS PCP IS AT [facility] HCP COMPLETED TODAY NAMING HIS HIS AGENT PT WILL DC HOME TODAY WITH NO SERVICES VIA PRIVATE TRANSPORT
--- NOTE | 2024-05-23 10:03 | HO.POSTANES ---
Post Anesthesia Evaluation Post Anesthesia Evaluation Date of Service: 05/21/24 Anesthesia: General Mental Status: Awake Pain Control: Satisfactory Hydration: Adequate
== END 2024-05-22 15:27 | disposition home or self-care (01) | DRG 263 ==
LOC: HO.ED 21:21 → HO.EDOVER 05-21 04:54 → HO.S3 05-21 13:50
PROVIDERS: Nurse Practitioner Family; Physician Assistant Medical; Admitting Provider Surgery; Emergency Provider Emergency Medicine Emergency Medical Services; Visit Provider Surgery
PROC: 0FT44ZZ Resection of Gallbladder, Percutaneous Endoscopic Approach (ICD-10-PCS; CPT 47562; principal; 2024-05-21 11:30)
DX: K81.0 Acute cholecystitis (principal)
CPT/HCPCS: 36415; 76700; 80053; 82248; 83605; 83690; 85025; 87040; 88304; 99285; J0131; J1100; J1885; J2250; J2270; J2405; J2543; J2704; J3010

== ENCOUNTER → 2024-05-21 04:42 | Outpatient (BNV) | payer SELFPAY | PROVIDERS: Admitting Provider Surgery; Emergency Provider Emergency Medicine Emergency Medical Services; Visit Provider Surgery | DX: K81.0 Acute cholecystitis (principal) | CPT/HCPCS: 47562; 99024; 99223 ==

== ENCOUNTER 2024-08-29 14:30 | Outpatient (REF) | payer SELFPAY | END 2024-08-29 14:31 | disposition home or self-care (01) | LOC: HO.HHCL 14:30 | PROVIDERS: Visit Provider Nurse Practitioner | DX: Z13.89 Encounter for screening for other disorder (principal) ==

== ENCOUNTER 2024-09-01 15:17 | Outpatient (REF) | payer SELFPAY ==
[2024-09-01 17:28] LABS: MANUAL DIFF FLAG NO
[2024-09-01 17:35] LABS: Basophils Absolute Auto 0.1 X10*3/uL (0.0-0.2); Basophils Percent Auto 0.9 % (0-2); Eosinophils Absolute Auto 0.1 X10*3/uL (0.0-0.4); Eosinophils Percent Auto 1.6 % (0-4); Hematocrit 38.6 % (42.0-52.0); Hemoglobin 12.9 g/dl (14.0-18.0); Imm Gran Abs Auto 0.02 X10*3/uL (0.00-0.03); Imm Gran Pct Auto 0.4 % (0.0-0.4); Lymphocytes Absolute Auto 1.7 X10*3/uL (1.2-4.9); Lymphocytes Percent Auto 29.2 % (20-40); Mean Corpuscular HGB Conc 33.4 g/dl (31.0-36.0); Mean Corpuscular Hemoglobin 29.4 pg (27.0-33.0); Mean Corpuscular Volume 87.9 fL (80.0-98.0); Mean Platelet Volume 12.1 fL (9.4-12.4); Monocytes Absolute Auto 0.4 X10*3/uL (0.1-1.2); Monocytes Percent Auto 7.5 % (2-11); Neutrophils Absolute Auto 3.5 x10*3/uL (2.0-8.3); Neutrophils Percent Auto 60.4 % (45-73); Platelet Count 189 X10*3/uL (160-400); Red Blood Count 4.39 X10*6/uL (4.60-5.80); Red Cell Distribution Width 13.2 % (11.0-16.0); White Blood Count 5.7 X10*3/uL (4.8-10.8)
[2024-09-01 17:39] LABS: Estimated Average Glucose 103 mg/dL; Hemoglobin A1C 110.6308 umol/L; Hemoglobin A1c % 5.2 % (<6.0); Total Hemoglobin (HGBA1C) 3315.4112 umol/L
[2024-09-01 17:43] LABS: C Reactive Protein < 0.04 mg/dL (< or = 0.50); Uric Acid 4.3 mg/dL (3.4-7.0)
[2024-09-01 17:52] LABS: Alanine Aminotransferase 44 U/L (0-40); Albumin Level 4.5 g/dL (3.5-5.0); Alkaline Phosphatase 57 U/L (39-117); Amylase 104 U/L (28-100); Anion Gap 8 (12-20); Aspartate Amino Transferase 33 U/L (5-37); Bilirubin Direct 0.1 mg/dL (0.0-0.5); Bilirubin Total 0.3 mg/dL (0.0-1.0); Blood Urea Nitrogen 17 mg/dL (9-16); C Reactive Protein < 0.04 mg/dL (< or = 0.50); Carbon Dioxide 28 mmol/L (22-29); Chloride 106 mmol/L (96-108); Cholesterol 153 mg/dL (<200); Estimated Glomerular Filt Rate > 60; Glucose Random 89 mg/dL (60-115); HDL Cholesterol 44 mg/dL (>40); LDL Cholesterol Calculated 83 mg/dL (<100); Lipase 25 U/L (8-78); Sodium 138 mmol/L (135-145); Total Protein 7.3 g/dL (6.5-8.0); Triglycerides 130 mg/dL (<150)
[2024-09-01 18:06] LABS: Free T4 (Free Thyroxine) 1.19 ng/dL (0.71-1.85); Thyroid Stimulating Hormone 2.03 uIU/mL (0.32-4.0); Vitamin D 25-OH Total 40.2 ng/mL (>30)
[2024-09-01 18:54] LABS: Erythrocyte Sedimentation Rate 3 MM/HR (0-15)
[2024-09-02 12:44] LABS: Lyme Abs Screen <0.90 index
== END 2024-09-01 15:18 | disposition home or self-care (01) ==
LOC: HO.CHCLDS 15:17
PROVIDERS: Nurse Practitioner; PCP Internal Medicine; Referring Provider Family Medicine; Visit Provider Internal Medicine
DX: Z13.1 Encounter for screening for diabetes mellitus (principal); Z13.6 Encounter for screening for cardiovascular disorders; R10.11 Right upper quadrant pain; M25.562 Pain in left knee; M76.892 Other specified enthesopathies of left lower limb, excluding foot
CPT/HCPCS: 36415; 80048; 80061; 80076; 82150; 82306; 83036; 83690; 84439; 84443; 84550; 85025; 85652; 86140; 86617; 86618

== ENCOUNTER 2024-09-02 13:43 | Outpatient (REF) | payer SELFPAY ==
[2024-09-02 17:37] LABS: Immature Retic Fraction 6.2 % (2.3-13.4); Retic HGB Equivalent 33.1 pg (30.0-35.0); Reticulocyte Percent 1.6 % (0.5-1.8); Reticulocytes Absolute 0.076 X10*6/uL (0.026-0.095)
[2024-09-02 18:09] LABS: Iron 85 mcg/dL (45-160); Percent Iron Saturation 25 % (15-50); Total Iron Binding Capacity 339 mcg/dL (228-428); Unsaturated Iron Binding 254 ug/dL
[2024-09-02 18:27] LABS: Ferritin 325 ng/mL (20-250)
== END 2024-09-02 13:44 | disposition home or self-care (01) ==
LOC: HO.CHCLDS 13:43
PROVIDERS: Visit Provider Internal Medicine
DX: D50.9 Iron deficiency anemia, unspecified (principal)
CPT/HCPCS: 36415; 82728; 83540; 85045

== ENCOUNTER 2024-09-13 14:08 | Outpatient (REF) | payer MEDICAID, OTHER, SELFPAY ==
--- NOTE | ~2024-09-13 | XR_ITS ---
CLINICAL HISTORY: left knee pain 2 view left knee Comparison: None Findings: No fractures or dislocations. No significant arthritic change or erosions. No joint effusion. No radiopaque foreign body. IMPRESSION: 1. No acute findings. This document has been electronically signed by: Chance Sharp MD on 09/15/2024 19:01:49
== END 2024-09-13 14:09 | disposition home or self-care (01) ==
LOC: HO.XRAY 14:08
PROVIDERS: PCP Internal Medicine; Visit Provider Internal Medicine
DX: M25.562 Pain in left knee (principal); M76.892 Other specified enthesopathies of left lower limb, excluding foot
CPT/HCPCS: 73560